=== PATIENT | female | born 1990 | race Caucasian/White ===

== ENCOUNTER 2020-07-03 10:57 | Emergency (ER) | payer BC, SELFPAY ==
[2020-07-03 12:04] VITALS: BP 129/85; PULSE 87; RESP 14; TEMP 37.2; O2SAT 97; BMI 32.3
--- NOTE | 2020-07-03 12:21 | HMH.EDUTC ---
[facility] [place] Disposition Clinical Impression: Viral syndrome, Bronchitis Disposition: Home, Self-Care Condition on Discharge: Good Instructions: Preventing the Spread of Coronavirus Discharge Instructions Additional Instructions: Drink plenty of fluids. Take tylenol for pain or fever. Take the medications as directed. Follow up with your regular doctor. GO TO THE ER FOR ANY WORSENING SYMPTOMS FOLLOW THE DIRECTIONS ON THE COVID-19 HAND OUT THAT WE GAVE YOU REGARDING SELF-ISOLATION UNTIL YOU KNOW YOUR COVID-19 RESULTS Prescriptions: Albuterol Sulfate [Albuterol Sulfate Hfa] 2 puffs IH Q6HP PRN 30 Days #1 [email or web address] PRN Reason: Shortness Of Breath Transmission Status: Received by [facility] Brompheniramine/Pseudoephed/Dm [Bromfed Dm Cough Syrup] 5 ml PO Q6HP PRN #240 syrup PRN Reason: Cough Transmission Status: Received by [facility] methylPREDNISolone [Medrol] 4 mg PO DIRECTED 6 Days #21 [email or web address] Transmission Status: Received by [facility] Azithromycin [Z-Chad 250mg Tab*] 250 mg PO UD DOSE PK #6 tab Transmission Status: Received by [facility] Referrals: Andreina Leggett [Primary Care Provider] - Forms: Work/School Release Time of Disposition: 12:27 Medical Decision Making - Medical Records Medical records reviewed: No: I reviewed the patient's medical records. - Akira Inquiry Pt receiving controlled substance: No Vital Signs: 07/03/20 12:04 07/03/20 12:36 Temperature 99 F 99 F Temperature Source Oral Oral Pulse Rate 87 Pulse Rate [Radial] 87 Respiratory Rate 14 14 Blood Pressure 129/85 Blood Pressure [Right Arm] 129/85 Blood Pressure Mean [Right Arm] 99 Blood Pressure Source Automatic Cuff Blood Pressure Source [Right Arm] Automatic Cuff Blood Pressure Position Sitting Blood Pressure Position [Right Arm] Sitting 02 Sat by Pulse Oximetry 97 Oxygen Delivery Method Room Air Room Air Orders (Tests/Meds): ORDERS Category Date Time Status Covid-19 Nasal PCR Sendout Maged Routine Lab 07/03/20 11:55 Received [facility] [place] HPI - General Stated complaint: sore throat,cough,SOA,weakness Time Seen by Provider: 07/03/20 12:15 Mode of Arrival: Ambulatory Source of Information: Patient Limitations: No Limitations Description of Symptoms (Recalled from Triage Doc. by RN): CONGESTION, COUGH, SOB, RUNNY NOSE, LOSS OF APPETITE, FATIGUE HEENT Symptoms (Recalled from RN notes): Yes Resp Symptoms (Recalled from RN notes): No Skin Symptoms (Recalled from RN notes): No MS Symptoms (Recalled from RN notes): No Functional Status (Recalled from RN notes): WNL - History of Present Illness Provider Complaint: She states that for the past 3 days she has had worsening sore throat, nasal drainage and chest congestion. She has a distant history of asthma, but she has not had symptoms in many years. She works at [employer], so she is around a lot of people every day and she has no idea if she has been exposed to covid or not. - Related Data Previous Rx's Medication Instructions Recorded Albuterol Sulfate [Albuterol 2 puffs IH Q6HP PRN 30 Days #1 07/03/20 Sulfate Hfa] hfa.aer.ad Azithromycin [Z-Chad 250mg Tab*] 250 mg PO UD DOSE PK #6 tab 07/03/20 Brompheniramine/Pseudoephed/Dm 5 ml PO Q6HP PRN #240 syrup 07/03/20 [Bromfed Dm Cough Syrup] methylPREDNISolone [Medrol] 4 mg PO DIRECTED 6 Days #21 07/03/20 tab.ds.pk Allergies Allergy/AdvReac Type Severity Reaction Status Date / Time No Known Allergies Allergy Verified 07/03/20 12:08 - Worker's Comp Is this a Worker's Comp case?: No [facility] History - Hepatitis A Screen Drug use history?: No High risk sexual behaviors?: No History of sexually transmitted infection?: No Currently employed?: No Childcare worker?: No Do you have indoor plumbing?: Yes Do you have electricity?: Yes Attestation statement:: This patient has been screened for Hepatitis A risk factors. I have reviewed the patient
[2020-07-03 12:36] VITALS: BP 129/85; PULSE 87; RESP 14; TEMP 37.2; O2SAT 97
[2020-07-04 14:08] LABS: Covid-19 Nasal PCR Sendout Lex POSITIVE
--- NOTE | 2020-07-04 14:17 | PC.NURSE ---
PT CALLED AND NOTIFIED OF POSITIVE COVID RESULT AT THIS TIME PER [facility]
== END 2020-07-03 12:50 | disposition home or self-care (01) ==
PROVIDERS: Emergency Provider Nurse Practitioner Family; PCP Nurse Practitioner Family
DX: B34.9 Viral infection, unspecified (principal); J20.9 Acute bronchitis, unspecified; Z03.818 Encounter for observation for suspected exposure to other biological agents ruled out
CPT/HCPCS: 99201; U0004